=== PATIENT | male | born 1985 | race Two or more races ===

== ENCOUNTER 2018-08-13 22:50 | Inpatient (IN) | payer BC, OTHER ==
[~2018-08-13] VITALS: Ht 177.8 cm; Wt 83.3 kg
[2018-08-13 23:55] LABS: Basophils # (auto) 0.1 uL; Basophils % (auto) 0.7 % (0.0-2.0); Eosinophils # (auto) 0.1 uL; Eosinophils % (auto) 0.9 % (0.0-7.0); Hematocrit 44.3 % (41.0-53.0); Hemoglobin 14.5 g/dL (13.5-17.5); Lymphocytes # (auto) 1.2 uL; Lymphocytes % (auto) 11.8 % (10.0-50.0); Mean Corpuscular Hemoglobin 25.2 pg (28.0-32.0); Mean Corpuscular Hgb Conc. 32.6 g/dL (32.0-36.0); Mean Corpuscular Volume 77.1 fL (80.0-100.0); Monocytes # (auto) 0.6 uL; Monocytes % (auto) 5.7 % (0.0-12.0); Neutrophils # (auto) 8.5 uL; Neutrophils % (auto) 80.9 % (37.0-80.0); Nucleated Red Blood Cells % 0.1 %; Platelet Count (auto) 229 10^3/uL (140-450); Red Blood Cells 5.75 10^6/uL (4.5-5.90); Red Cell Distribution Width 16.3 % (11.8-14.3); White Blood Cell 10.5 10^3/uL (4.4-10.8)
[2018-08-14 00:15] LABS: Bilirubin, Total 0.9 mg/dL (0.2-1.0); Total Protein 6.7 g/dL (6.4-8.2)
[2018-08-14 00:18] LABS: Albumin 3.3 g/dL (3.4-5.0); BUN/Creatinine Ratio 9.3; Calcium 8.3 mg/dL (8.5-10.1); Uric Acid 5.7 mg/dL (3.5-7.2)
[2018-08-14] MEDS ORDERED: FUROSEMIDE 40 MG/4 ML VIAL IV ONE (01:30)
[2018-08-14 01:54] LABS: Alcohol, Urine < 3.0 mg/dL (0-5); Amphetamine Screen, Urine NEGATIVE (NEGATIVE); Barbiturate Scree,Urine NEGATIVE (NEGATIVE); Benzodiazephine Screen, Urine NEGATIVE (NEGATIVE); Cannabinoid Screen, Urine NEGATIVE (NEGATIVE); Cocaine Screen, Urine NEGATIVE (NEGATIVE); Opiate Scree,Urine NEGATIVE (NEGATIVE); Phencyclidine Screen, Urine NEGATIVE (NEGATIVE)
[2018-08-14 02:04] LABS: Urine Bacteria FEW /hpf (None Seen); Urine Blood Negative /uL (Negative); Urine Hyaline Cast MOD /lpf (0 - 2); Urine Mucus FEW (None Seen); Urine WBC 2 /hpf (0 - 3)
[2018-08-14 02:16] LABS: Amylase 32 U/L (25-115); Lipase 142 U/L (73-393)
[2018-08-14] MEDS ORDERED: ONDANSETRON HCL 4 MG/2 ML VIAL IV PRN (05:15)
[2018-08-14] MEDS ORDERED: ACETAMINOPHEN 500 MG TAB PO PRN (05:15)
[2018-08-14] MEDS: cefTRIAXone 1GM/50ML D5W 50 ML IV SCH (05:53)
[2018-08-14] MEDS: PANTOPRAZOLE 40 MG/10 ML VIAL IV SCH (05:53)
[2018-08-14] MEDS: FUROSEMIDE 20 MG/2 ML VIAL IV SCH ×2 (06:03→18:11)
[2018-08-14 06:23] LABS: Basophils # (auto) 0.1 uL; Eosinophils # (auto) 0 uL; Hemoglobin 13.7 g/dL (13.5-17.5); Monocytes # (auto) 0.5 uL
[2018-08-14 06:25] LABS: Basophils % (auto) 0.6 % (0.0-2.0); Eosinophils % (auto) 0.4 % (0.0-7.0); Hematocrit 41.2 % (41.0-53.0); Lymphocytes # (auto) 1.2 uL; Mean Corpuscular Hemoglobin 25.1 pg (28.0-32.0); Mean Corpuscular Hgb Conc. 33.3 g/dL (32.0-36.0); Mean Corpuscular Volume 75.4 fL (80.0-100.0); Neutrophils # (auto) 9.2 uL; Nucleated Red Blood Cells % 0.1 %; Platelet Count (auto) 215 10^3/uL (140-450); Red Blood Cells 5.47 10^6/uL (4.5-5.90); Red Cell Distribution Width 15.8 % (11.8-14.3); White Blood Cell 11.1 10^3/uL (4.4-10.8)
[2018-08-14 06:42] LABS: BUN/Creatinine Ratio 9.3; Calcium 8.1 mg/dL (8.5-10.1); Potassium 3.7 mmol/L (3.5-5.1)
[2018-08-14 09:00] VITALS: BP 124/58
[2018-08-14] MEDS ORDERED: POTASSIUM CHL 10 Meq TABLET PO ONE (11:00)
[2018-08-14 13:00] VITALS: BP 118/58
[2018-08-14 17:00] VITALS: BP 115/52
[2018-08-14] MEDS: TEMAZEPAM 15 MG CAP PO PRN (21:14)
[2018-08-14 21:40] VITALS: BP 110/53
[2018-08-15 04:58] VITALS: BP 112/55
[2018-08-15] MEDS: PANTOPRAZOLE 40 MG/10 ML VIAL IV SCH (05:48)
[2018-08-15] MEDS: FUROSEMIDE 20 MG/2 ML VIAL IV SCH ×2 (05:48→17:37)
[2018-08-15] MEDS: cefTRIAXone 1GM/50ML D5W 50 ML IV SCH (05:49)
[2018-08-15 08:00] VITALS: BP 111/56
[2018-08-15 08:06] LABS: Basophils # (auto) 0.1 uL; Basophils % (auto) 0.7 % (0.0-2.0); Eosinophils # (auto) 0.2 uL; Monocytes # (auto) 0.6 uL
[2018-08-15 08:09] LABS: Eosinophils % (auto) 1.5 % (0.0-7.0); Hematocrit 41.8 % (41.0-53.0); Hemoglobin 13.9 g/dL (13.5-17.5); Lymphocytes # (auto) 1.4 uL; Lymphocytes % (auto) 13.8 % (10.0-50.0); Mean Corpuscular Hgb Conc. 33.3 g/dL (32.0-36.0); Mean Corpuscular Volume 75.8 fL (80.0-100.0); Monocytes % (auto) 5.6 % (0.0-12.0); Neutrophils % (auto) 78.4 % (37.0-80.0); Nucleated Red Blood Cells % 0.1 %; Platelet Count (auto) 218 10^3/uL (140-450); Red Blood Cells 5.51 10^6/uL (4.5-5.90); Red Cell Distribution Width 15.6 % (11.8-14.3); White Blood Cell 10.2 10^3/uL (4.4-10.8)
[2018-08-15 08:10] LABS: Mean Corpuscular Hemoglobin 25.2 pg (28.0-32.0)
[2018-08-15 08:21] LABS: Albumin 2.8 g/dL (3.4-5.0); BUN/Creatinine Ratio 7.8; Calcium 7.9 mg/dL (8.5-10.1); Potassium 3.5 mmol/L (3.5-5.1)
[2018-08-15 08:31] LABS: Bilirubin, Total 0.8 mg/dL (0.2-1.0); Total Protein 5.8 g/dL (6.4-8.2)
[2018-08-15 09:14] VITALS: BP 111/56
[2018-08-15] MEDS: POTASSIUM CHL 10 Meq TABLET PO SCH (10:04)
[2018-08-15 12:17] LABS: INR 1.19 (0.9-1.15); Prothrombin Time 12.6 sec (9.27-12.13)
[2018-08-15 12:58] VITALS: BP 100/48
[2018-08-15] MEDS: Ensure Enlive Strawberry 8oz Bottle PO SCH ×2 (13:48→17:37)
[2018-08-15 17:04] VITALS: BP 108/53
[2018-08-15] MEDS: TEMAZEPAM 15 MG CAP PO PRN (21:52)
[2018-08-15 22:00] VITALS: BP 109/51
[2018-08-16 05:00] VITALS: BP 109/43
[2018-08-16 05:23] LABS: Basophils # (auto) 0.1 uL; Basophils % (auto) 0.6 % (0.0-2.0); Eosinophils # (auto) 0.2 uL; Hematocrit 40.1 % (41.0-53.0); Lymphocytes # (auto) 1.2 uL; Monocytes # (auto) 0.7 uL; Neutrophils # (auto) 8.3 uL; Red Cell Distribution Width 15.5 % (11.8-14.3)
[2018-08-16 05:26] LABS: Eosinophils % (auto) 1.6 % (0.0-7.0); Hemoglobin 13.5 g/dL (13.5-17.5); Lymphocytes % (auto) 11.7 % (10.0-50.0); Mean Corpuscular Hemoglobin 25.5 pg (28.0-32.0); Mean Corpuscular Hgb Conc. 33.7 g/dL (32.0-36.0); Mean Corpuscular Volume 75.9 fL (80.0-100.0); Monocytes % (auto) 6.6 % (0.0-12.0); Neutrophils % (auto) 79.5 % (37.0-80.0); Platelet Count (auto) 190 10^3/uL (140-450); Red Blood Cells 5.28 10^6/uL (4.5-5.90); White Blood Cell 10.4 10^3/uL (4.4-10.8)
[2018-08-16] MEDS: cefTRIAXone 1GM/50ML D5W 50 ML IV SCH (05:33)
[2018-08-16] MEDS: FUROSEMIDE 20 MG/2 ML VIAL IV SCH (05:33)
[2018-08-16] MEDS: PANTOPRAZOLE 40 MG/10 ML VIAL IV SCH (05:33)
[2018-08-16 05:50] LABS: Calcium 8.2 mg/dL (8.5-10.1); Potassium 3.5 mmol/L (3.5-5.1)
[2018-08-16 05:54] LABS: BUN/Creatinine Ratio 11.5
[2018-08-16] MEDS: Ensure Enlive Strawberry 8oz Bottle PO SCH ×2 (08:00→12:00)
[2018-08-16 08:23] VITALS: BP 119/50
[2018-08-16] MEDS ORDERED: MIDAZOLAM HCL 1MG/1ML-2 ML VIAL IV ONE (09:45)
[2018-08-16] MEDS ORDERED: fentaNYL CITRATE 100 MCG/2 ML VL IV ONE (09:45)
[2018-08-16] MEDS ORDERED: LIDOCAINE VISCOUS 2% 15ML UD PO ONE (09:45)
[2018-08-16] MEDS ORDERED: MIDAZOLAM HCL 1MG/1ML-2 ML VIAL ONE (10:23)
[2018-08-16] MEDS: POTASSIUM CHL 10 Meq TABLET PO SCH (11:51)
[2018-08-16 13:07] VITALS: BP 101/49
[2018-08-16 13:10] LABS: Hepatitis B Core IgM Negative
[2018-08-16 13:12] LABS: Hepatitis B Surface Antigen Negative (Negative)
[2018-08-16 13:14] LABS: Hepatitis C Antibody Negative (Negative)
[2018-08-16 13:15] LABS: Hepatitis A Ab IgM Negative
[2018-08-16 16:06] VITALS: BP 101/49
== END 2018-08-16 17:20 | disposition home or self-care (01) | DRG 291 ==
LOC: ER 22:57 → TELE 08-14 05:11 → TELE-WESTW 08-14 06:45
PROVIDERS: ADMIT Nurse Practitioner Family; ATTEND Internal Medicine
PROC: B246ZZ4 Ultrasonography of Right and Left Heart, Transesophageal (ICD-10-PCS; principal; 2018-08-16)
DX: I50.43 Acute on chronic combined systolic (congestive) and diastolic (congestive) heart failure (principal); N17.0 Acute kidney failure with tubular necrosis; N39.0 Urinary tract infection, site not specified; R18.8 Other ascites; E87.1 Hypo-osmolality and hyponatremia; Q23.1 Congenital insufficiency of aortic valve; K40.20 Bilateral inguinal hernia, without obstruction or gangrene, not specified as recurrent; K42.9 Umbilical hernia without obstruction or gangrene; I44.0 Atrioventricular block, first degree; I34.0 Nonrheumatic mitral (valve) insufficiency
CPT/HCPCS: 36415; 71045; 74176; 80048; 80053; 80074; 80307; 81001; 82150; 83690; 83880; 84484; 84550; 85025; 85610; 87040; 87086; 93306; 93312; 96374; 96375; 99152; C9113; G0378; J0696; J2250; J2405